=== PATIENT | female | born 1990 | race Caucasian/White ===

== ENCOUNTER 2017-12-25 09:25 | Inpatient (IN) | payer MEDICAID ==
[2017-12-25] MEDS ORDERED: MISOPROSTOL 200 MCG TAB PR ×2 (10:00→13:30)
[2017-12-25] MEDS ORDERED: METHYLERGONOVINE 0.2 MG INJ IM ×2 (10:00→13:30)
[2017-12-25] MEDS ORDERED: CEFAZOLIN 2 GM/50 ML (PMX) 50 ML IVPB (10:00)
[2017-12-25] MEDS ORDERED: CARBOPROST 250 MCG INJ IM ×2 (10:00→13:30)
[2017-12-25] MEDS ORDERED: OXYTOCIN 30 UNITS/LR 500 ML IV ×3 (10:00→13:30)
[2017-12-25] MEDS: LACTATED RINGER'S 1,000 ML IV (10:45)
[2017-12-25 11:01] LABS: ADD MAN DIFF? NO
[2017-12-25 11:04] LABS: WHITE BLOOD COUNT 12.5 10^3/ul (4.8-10.8)
[2017-12-25 11:04] LABS: BASOPHILS % 0.2 % (0.0-2.0); EOSINOPHILS # 0.1 10^3/ul (0.0-0.5); EOSINOPHILS % 0.8 % (0.0-7.0); HEMATOCRIT 36.4 % (37.0-47.0); HEMOGLOBIN 12.4 g/dl (12.0-16.0); LYMPHOCYTES # 1.9 10^3/ul (0.8-2.9); LYMPHOCYTES % 15.1 % (15.0-51.0); MEAN CORPUSCULAR HEMOGLOBIN 30.8 pg (29.0-33.0); MEAN CORPUSCULAR HGB CONC 34.1 g/dl (32.0-37.0); MEAN CORPUSCULAR VOLUME 90.5 fl (82.0-101.0); MEAN PLATELET VOLUME 9.3 fl (7.4-10.4); MONOCYTE # 0.5 10^3/ul (0.3-0.9); MONOCYTES % 3.8 % (0.0-11.0); NEUTROPHIL # 9.9 10^3/ul (1.6-7.5); NEUTROPHILS % 79.6 % (39.0-77.0); PLATELET COUNT 376 10^3/UL (140-415); RED BLOOD COUNT 4.02 10^6/ul (4.20-5.40); RED CELL DISTRIBUTION WIDTH 13.5 % (11.5-14.5)
[2017-12-25 11:23] LABS: INR 0.91; PROTIME 12.3 Sec (11.9-14.9)
[2017-12-25 11:24] LABS: PARTIAL THROMBOPLASTIN TIME 27.3 Sec (23.0-35.0)
[2017-12-25] MEDS ORDERED: FENTAnyl 50 MCG/ML VIAL (12:45)
[2017-12-25] MEDS ORDERED: NA BICARBONATE 8.4% 50 ML SYG (12:45)
[2017-12-25] MEDS ORDERED: LIDOCAINE 2% (SDV) 5 ML INJ (12:45)
[2017-12-25] MEDS ORDERED: DEXAMETHASONE 4 MG/ML 1 ML INJ (13:00)
[2017-12-25] MEDS ORDERED: ONDANSETRON 4 MG INJ (13:00)
[2017-12-25] MEDS ORDERED: PHENYLephrine (100 MCG/ML) 5ML SYG (13:19)
[2017-12-25] MEDS ORDERED: morphine SULFATE/PF (10 MG/10 ML) INJ (13:22)
[2017-12-25 13:23] LABS: HEPATITIS B SURFACE ANTIGEN NEGATIVE (NEGATIVE)
[2017-12-25] MEDS ORDERED: OXYCODONE/ACETAMINOPHEN (5/325) TAB PO (13:30)
[2017-12-25] MEDS ORDERED: KETOROLAC 30 MG INJ IV (14:00)
[2017-12-25] MEDS ORDERED: ZOLPIDEM 5 MG TAB PO (14:00)
[2017-12-25] MEDS ORDERED: ONDANSETRON 4 MG INJ IV (14:00)
[2017-12-25] MEDS ORDERED: HYDROmorphONE 0.5 MG/0.5 ML SYG IV ×2 (14:00)
[2017-12-25] MEDS ORDERED: DIPHENHYDRAMINE 50 MG INJ IV (14:00)
[2017-12-25] MEDS ORDERED: NALOXONE (0.4 MG/ML) INJ IV (14:00)
[2017-12-25] MEDS: OXYTOCIN 30 UNITS/LR 500 ML IV (15:32)
[2017-12-25 16:27] LABS: RAPID PLASMA REAGIN NONREACTIVE (NR)
[2017-12-25] MEDS: SENNA/DOCUSATE NA (8.6MG/50MG) TAB PO (21:11)
[2017-12-26] MEDS ORDERED: LACTATED RINGER'S 1,000 ML IV (01:00)
[2017-12-26] MEDS: LACTATED RINGER'S 1,000 ML IV ×2 (01:07→09:13)
[2017-12-26] MEDS: SENNA/DOCUSATE NA (8.6MG/50MG) TAB PO ×2 (09:12→21:29)
[2017-12-26 10:08] LABS: ADD MAN DIFF? NO
[2017-12-26 10:13] LABS: WHITE BLOOD COUNT 13.6 10^3/ul (4.8-10.8)
[2017-12-26 10:13] LABS: BASOPHILS % 0.2 % (0.0-2.0); EOSINOPHILS % 0.3 % (0.0-7.0); HEMATOCRIT 31.8 % (37.0-47.0); HEMOGLOBIN 10.6 g/dl (12.0-16.0); LYMPHOCYTES # 3.1 10^3/ul (0.8-2.9); LYMPHOCYTES % 22.5 % (15.0-51.0); MEAN CORPUSCULAR HEMOGLOBIN 31.2 pg (29.0-33.0); MEAN CORPUSCULAR HGB CONC 33.3 g/dl (32.0-37.0); MEAN CORPUSCULAR VOLUME 93.5 fl (82.0-101.0); MEAN PLATELET VOLUME 9.5 fl (7.4-10.4); MONOCYTE # 0.8 10^3/ul (0.3-0.9); MONOCYTES % 5.5 % (0.0-11.0); NEUTROPHIL # 9.7 10^3/ul (1.6-7.5); PLATELET COUNT 356 10^3/UL (140-415); RED CELL DISTRIBUTION WIDTH 13.4 % (11.5-14.5)
[2017-12-26] MEDS: IBUPROFEN 600 MG TAB PO ×2 (18:04→23:35)
[2017-12-26] MEDS: FERROUS SULFATE (EC) 325 MG TAB PO (21:29)
[2017-12-27] MEDS: LANOLIN 7 GM TUBE TOP (04:10)
[2017-12-27] MEDS: IBUPROFEN 600 MG TAB PO ×3 (05:17→17:35)
[2017-12-27] MEDS: FERROUS SULFATE (EC) 325 MG TAB PO ×2 (08:37→21:09)
[2017-12-27] MEDS: SENNA/DOCUSATE NA (8.6MG/50MG) TAB PO ×2 (08:37→21:00)
[2017-12-27] MEDS: OXYCODONE/ACETAMINOPHEN (5/325) TAB PO (21:09)
[2017-12-28] MEDS: IBUPROFEN 600 MG TAB PO ×4 (03:29→17:04)
[2017-12-28] MEDS: FERROUS SULFATE (EC) 325 MG TAB PO (08:33)
[2017-12-28] MEDS: SENNA/DOCUSATE NA (8.6MG/50MG) TAB PO (08:34)
== END 2017-12-28 20:20 | disposition home or self-care (01) | DRG 788 ==
LOC: L-D 09:25 → PP1 16:16
PROVIDERS: Obstetrics & Gynecology
PROC: 10D00Z1 Extraction of Products of Conception, Low, Open Approach (ICD-10-PCS; principal; 2017-12-25 17:00)
DX: O34.211 Maternal care for low transverse scar from previous cesarean delivery (principal); Z3A.39 39 weeks gestation of pregnancy; Z37.0 Single live birth
CPT/HCPCS: 85025; 85610; 85730; 86592; 86850; 86900; 86901; 87340; 99464